=== PATIENT | male | born 1950 | race Two or more races ===

== ENCOUNTER 2025-01-10 15:49 | Outpatient (REF) | payer MEDICARE, MEDICAID, SELFPAY ==
--- OUTSIDE RECORDS SUMMARY | 2025-01-10 15:58 | XMS_ITS | Clinical Summary ---
Author Organization Social[employer] tem Address [id number] [address] 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 Name Role Phone No Pcp, No Pcp Primary Care Provider Unavailabl e Allergies Active AllergyReactionsCriticalityNoted PothMqppzzrnBeovqusvylw25/18/2018 Medications MedicationSigDispense QuantityRefillsLast FilledStart DateEnd DateStatus metFORMIN XR (GLUCOPHAGE-XR) 750 mg 24 hr tablet Take 1 tablet (750 mg total) by mouth daily with breakfast.Active lisinopriL (PRINIVIL,ZESTRIL) 30 mg tablet Take 40 mg by mouth in the morning.Active amLODIPine (NORVASC) 10 mg tablet Take 1 tablet (10 mg total) by mouth in the morning.Active busPIRone (BUSPAR) 15 mg tablet Take 1 tablet (15 mg total) by mouth in the morning and 1 tablet (15 mg total) before bedtime.Active diphenoxylate-atropine (LOMOTIL) 2.5-0.025 mg per tablet Take 1 tablet by mouth as needed in the morning and 1 tablet as needed at noon and 1 tablet as needed in the evening and 1 tablet as needed before bedtime for diarrhea.Active oxyCODONE-acetaminophen (PERCOCET) 5-325 mg per tablet Take 1 tablet by mouth every 8 (eight) hours as needed for pain.Active acamprosate (CAMPRAL) 333 mg EC tablet Take 2 tablets (666 mg total) by mouth in the morning and 2 tablets (666 mg total) at noon and 2 tablets (666 mg total) before bedtime.08/04/2020ctive acetaminophen (TYLENOL EXTRA STRENGTH) 500 mg tablet Take 1 tablet (500 mg total) by mouth in the morning and 1 tablet (500 mg total) at noon and 1 tablet (500 mg total) in the evening.Active aspirin 81 mg chewable tablet Chew 1 tablet (81 mg total) and swallow in the morning.08/05/2020ctive atorvastatin (LIPITOR) 80 mg tablet Take 1 tablet (80 mg total) by mouth daily.08/04/2020ctive meclizine (ANTIVERT) 25 mg tablet Take 1 tablet (25 mg total) by mouth 3 (three) times a day as needed.Active melatonin 10 mg tablet Take 10 mg by mouth nightly.Active polyethylene glycol (GLYCOLAX) 17 gram/dose powder Take 17 g by mouth in the morning.Active insulin glargine (LANTUS SOLOSTAR U-100 INSULIN) 100 unit/mL (3 mL) insulin pen Inject 50 Units under the skin nightly.Active NovoLOG Flexpen U-100 Insulin 100 unit/mL (3 mL) insulin pen Inject 4-14 Units under the skin in the morning and 4-14 Units at noon and 4-14 Units before bedtime.02/25/2021ctive escitalopram (LEXAPRO) 20 mg tablet Take 1 tablet (20 mg total) by mouth daily.Active glipiZIDE (GLUCOTROL XL) 10 mg 24 hr tablet Take 1 tablet (10 mg total) by mouth in the morning and 1 tablet (10 mg total) before bedtime.Active metoprolol tartrate (LOPRESSOR) 50 mg tablet Take 1 tablet (50 mg total) by mouth in the morning and 1 tablet (50 mg total) before bedtime.Active furosemide (LASIX) 20 mg tablet Take 1 tablet (20 mg total) by mouth daily.Active busPIRone (BUSPAR) 5 mg tablet Take 1 tablet (5 mg total) by mouth in the morning and 1 tablet (5 mg total) before bedtime.02/27/2021ctive miconazole (MICATIN) 2 % cream Apply 1 Application topically 2 (two) times a day as needed (fungal rash).Active ergocalciferol (DRISDOL) 1,250 mcg (50,000 unit) capsule Take 1 capsule (50,000 Units total) by mouth once a week.Active potassium chloride (K-TAB,KLOR-CON) 20 mEq CR tablet Take 1 tablet (20 mEq total) by mouth in the morning and 1 tablet (20 mEq total) before bedtime.Active TRULICITY 3 mg/0.5 mL pen injector Inject 0.5 mg under the skin once a week.3Active calcium carbonate-vitamin D3 (CALCIUM 500 + D) 500 mg(1,250mg) -200 units per tablet Take 1 tablet by mouth in the morning.Active gabapentin (NEURONTIN) 100 mg capsule Take 1 capsule (100 mg total) by mouth in the morning and 1 capsule (100 mg total) at noon and 1 capsule (100 mg total) before bedtime.Active rOPINIRole (REQUIP) 0.25 mg tablet Take 1 tablet (0.25 mg total) by mouth nightly.Active ammonium lactate (AMLACTIN) 12 % cream Indications:dry skinApply 1 Application topically nightly Indications: dry skin. Active lidocaine 3 % cream Apply topically as needed (to back and neck).Active ezetimibe (ZETIA) 10 mg tablet Take 1 tablet (10 mg total) by mouth in the morning.Active ketoconazole (NIZORAL) 2 % shampoo Apply 1 Application topically 2 (two) times a week. Apply to damp skin, lather, leave on 5 minutes,and rinseActive apixaban (ELIQUIS) 5 mg tablet Take 2 tablets (10 mg total) by mouth in the morning and 2 tablets (10 mg total) before bedtime. 14 tablet 5Active apixaban (ELIQUIS) 5 mg tablet Take 2 tablets (10 mg total) by mouth in the morning and 2 tablets (10 mg total) before bedtime. 10mg BID x7 days, then 5mg BID x7 days. 42 tablet 5Active spironolactone (ALDACTONE) 25 mg tablet Take 1 tablet (25 mg total) by mouth in the morning.Active docusate (COLACE) 50 mg/5 mL liquid Take 5 mL (50 mg total) by mouth in the morning.Active colchicine (COLCRYS) 0.6 mg tablet Take 1 tablet (0.6 mg total) by mouth in the morning.Active dapagliflozin-saxagliptin 5-5 mg tablet Take by mouth.Active semaglutide (OZEMPIC) 0.25 mg or 0.5 mg(2 mg/1.5 mL) pen injector Inject under the skin.Active albuterol (PROVENTIL HFA;VENTOLIN HFA) 90 mcg/actuation inhaler Inhale 2 puffs every 6 (six) hours as needed for wheezing.Active pantoprazole (PROTONIX) 40 mg EC tablet Take 1 tablet (40 mg total) by mouth in the morning and 1 tablet (40 mg total) in the evening. Takebefore meals.5Active Active Problems ProblemNoted DateDiagnosed DateCervical spondylosis without kzkfyyzqgt79/06/2023 Primary osteoarthritis of right eidwcwto19/06/7385Oxisuaytaq72/08/2022Restless legs08/16/2021iabetic veucysgrwg82/26/2021Heart dqxomxa7708/05/2020Hyperlipidemia 08/05/20203669Zfljguinhr54/20/2021ssential zdsshmqenubq99/20/2021Vascular dementia without behavioral gugbnjjiime62/20/2021lcohol withdrawal rmxmcgiq74/22/2020 Ntmbvmvfsfva47/11/2019 Encounters DateTypeDepartmentCare WomeChlltyhcwmv67/05/2025 3:40 PM EDT - 10/15/2024 6:45 PM EDTEmergency [facility] [address] [place] [address] Yogi Gu DO Hematoma (Primary Dx) Discharge Disposition: Home10/15/2024Travelfrom Last 3 Months Family History Medical HistoryRelationNameCommentsDiabetesBrotherHypertensionBrother HypertensionDaughterDiabetesFatherHypertensionFatherDiabetesMotherHeart disease MotherHypertensionMotherDiabetesSisterAnesthesia problemsNeg HxBleeding Disorder Neg HxRelationNameStatusCommentsBrotherDaughterFatherMotherSister Social History Tobacco UseTypesPacks/DayYears UsedDateSmoking Tobacco: Every DayCigarettes0.53 Smokeless Tobacco: Never Tobacco Cessation:Ready to Q uit: Not Asked; Counseling Given: Not Answered Alcohol UseStandard Drinks/WeekCommentsNot Currently0 (1 standard drink = 0.6 oz pure alcohol)says goes in binges. 1/5 of liquorAUDIT-CAnswerDate Recorded Frequency of Alcohol LtpkdeyxxdoQvnxr79/15/2018Average Number of DrinksNot on file10/25/2017Frequency of Binge DrinkingNot on file10/25/2017ChildcareAnswer Date DydcunzvXflcrpxvrGajtgru48/10/2019EmploymentAnswerDate RecordedEmployment Qvywkop6707/20/2018Hunger ScreeningAnswerDate RecordedWithin the past 12 months we worried whether our food would run out before we got money to buy more.Never True10/15/2024Within the past 12 months the food we bought just didn't last and we didn't have money to get more.Never True10/15/2024Purpose - LifeAnswerDate RecordedPurpose and direction in bvqtTdotcnw70/27/2021ex and Gender Information ValueDate RecordedSex Assigned at BirthNot on fileLegal WxlBqpq40/10/2015 10:22 AM ESTGender IdentityNot on fileSexual OrientationNot on file Last Filed Vital Signs Vital SignReadingTime TakenCommentsBlood Igpbkqvr020/8009 5:44 PM EDT Hekwb308310/15/2024 5:44 PM PTQAkpuosisepl44.7 ??C (98 ??F)10/15/2024 2:25 PM EDT Respiratory Jqbj318510/15/2024 5:44 PM EDTOxygen Dkdcbwrbav346%10/15/2024 5:44 PM EDTInhaled Oxygen Concentration--Gwuocz13.6 kg (171 lb)10/15/2024 2:25 PM EDT Rtdlio540.7 cm (5' 8 )10/15/2024 2:25 PM EDTBody Mass Ljshq6541/05/2025 2:25 PM EDT Plan of Treatment Health MaintenanceDue DateLast DoneCommentsTobacco Bytlxdmjye93/22/1953 Depression Nbefnarvv30/22/1965Adult BMI Follow Up Plan1970DTaP,Tdap and Td Vaccines (1 - Tdap)08/02/1971Zoster (Shingles) Vaccine (1 of 2)2002Fall Risk Qhrynzlgl52/22/2018Influenza Ogxjnti5310/11/2024Tobacco Jfqqjunwm64/29/2026 07/08/2024dult BMI Hgufldvgd47/06/2024RSV ( or age 60+ yrs) (1 - 1-dose 75+ series)08/02/2027bdominal Aortic Aneurysm (AAA) ScreenCompleted 06/24/2024 Goals GoalPatient Goal TypeAssociated ProblemsRecent ProgressPatient-Stated?Author Discharge home Swathi Hernandez RN Note: Evaluation of progress towards goal: Per discussion with , goal is to return home with home health care. Medical Devices ImplantedTypeAreaManufacturerDevice IdentifierShelf Expiration DateModel / Serial / LotLens Iol Ultrasert 21.5d - [id number] - [id number] Implanted:Qty: 1 on 02/22/2021 [facility] [id number] 21.5 / [id number] / NALens Iol Sy60wf.225 [place] Rpl 026375 - [id number] - [id number] Implanted:Qty: 1 on 07/08/2024 [facility] [id number] / [id number] / NAWr Fx Krsh 1.6mm 150mm Troc - [id number] Implanted:Qty: 2 on 06/30/2018 [facility]Right: BuhguCPJLL385.16 / / Plt Bn 73mm 2 Hl Va Lcp Olcrn - [id number] Implanted:Qty: 1 on 06/30/2018 by Espinoza [facility]ard [facility]: PwlyyVGOXD80.107.002 / / Scr Bn Cnn St 3.5mm 28mm - [id number] Implanted:Qty: 1 on 06/30/2018 [facility]: DvtebQFHTV676.828 / / Scr Bn Cnn St 3.5mm 24mm - [id number] Implanted:Qty: 1 on 06/30/2018 by [facility]: CdlbaOKZLJ912.824 / / Scr Bn 22mm 2.7mm St Strdr Lp - [id number] Implanted:Qty: 1 on 06/30/2018 by [facility]: NcykfOGXPP96.118.550 / / Scr Bn 22mm 2.7mm St Strdr Lp - [id number] Implanted:Qty: 1 on 06/30/2018 by [facility]: PmbycETZXC47.118.522 / / Scr Bn 18mm 2.7mm Va Lck St - [id number] Implanted:Qty: 1 on 06/30/2018 by Espinoza eGrard [facility]: SzsmpRBMKM75.211.018 / / Scr Bn 32mm 2.7mm [address] L[address] - [id number] Implanted:Qty: 1 on 06/30/2018 by [facility]: JckmuKMOZL12.211.032 / / Scr Bn 56mm 2.7mm [address] St - [id number] Implanted:Qty: 1 on 06/30/2018 by [facility]: IwvjfJCOUS94.211.056 / / Procedures Procedure NamePriorityDate/TimeAssociated DiagnosisCommentsCT KNEE RT WO CONT STAT10/15/2024 5:[address] BRAIN WO RSRXCEFJ65/05/2025 5:08 PM EDT EXTRA TUBES BLUE VEXFizzayz37/05/2025 4:42 PM EDT EXTRA XBJFZCktiydf78/05/2025 4:42 PM EDT C-REACTIVE PUDJEPZVVAI14/06/2024 4:39 PM EDT COMPREHENSIVE METABOLIC NMJELJBRH30/05/2025 4:39 PM EDT CBC WITH AUTO BZIDQERUFODYCIHR24/05/2025 4:39 PM EDT from Last 3 Months Results * CT knee right without contrast (10/15/2024 5:09 PM EDT)Anatomical Region LateralityModalityMSK, Lower Extremities, Knee, Patella, MSK CoveraRight Computed TomographySpecimen (Source)Anatomical Location / LateralityCollection Method / VolumeCollection TimeReceived Time10/15/2024 5:19 PM EDT Narrative 10/15/2024 5:22 PM EDT STUDY: CT KNEE RT WO CONT INDICATION: Fall. Pain TECHNIQUE: CT of the knee without contrast.. FINDINGS: Prepatellar, infrapatellar hematoma measures 7.1 x 1.9 x 7.0 cm. No obvious acute displaced fracture, malalignment. No significant suprapatellar effusion. No significant degenerative osteoarthritis for age. Vascular calcification/atherosclerosis. The quadriceps, patellar tendon appear intact. IMPRESSION: * ??Large prepatellar/infrapatellar soft tissue hematoma. * ??No obvious acute fracture, malalignment. Finalized by Rolan Brownlee on 10/15/2024 5:22 PM Procedure Note Rolan Brownlee MD - 10/15/2024 STUDY: CT KNEE RT WO CONT INDICATION: Fall. Pain TECHNIQUE: CT of the knee without contrast.. FINDINGS: Prepatellar, infrapatellar hematoma measures 7.1 x 1.9 x 7.0 cm. No obvious acute displaced fracture, malalignment. No significantsuprapatellar effusion. No significant degenerative osteoarthritis for age. Vascular calcification/atherosclerosis. The quadriceps, patellar tendonappear intact. IMPRESSION: * Large prepatellar/infrapatellar soft tissue hematoma. * No obvious acute fracture, malalignment. Finalized by Rolan Brownlee on 10/15/2024 5:22 PM Authorizing ProviderResult TypeResult StatusMicmukesh Gu [facility] CT ORDERABLESFinal Result * CT brain without contrast (10/15/2024 5:08 PM EDT)Anatomical RegionLaterality ModalityNeuro, Head, Head and Neck, Neuro CoveraN/AComputed TomographySpecimen (Source)Anatomical Location / LateralityCollection Method / VolumeCollection TimeReceived Time10/15/2024 5:14 PM EDT Narrative 10/15/2024 5:17 PM EDT STUDY: CT BRAIN WO CONT INDICATION: Fall. Possible loss of consciousness. TECHNIQUE: * ??CT head was performed without intravenous contrast using the standard protocol. Automated exposure control was utilized. * ??All CT scans at this facility use dose modulation, iterative reconstruction, and/or weight based dosing when appropriate to reduce radiation dose to as low as reasonably achievable. FINDINGS: No evidence of acute intracranial hemorrhage, mass effect, midline shift, or extra-axial fluid collection. Mild diffuse parenchymal atrophy. Ventricles, sulci and cisterns are otherwise unremarkable.Confluent periventricular and subcortical white matter hypodensities likely represent chronic microangiopathic changes. ??Davis-white matter differentiation is preserved. Bilateral pseudophakia. ??Soft tissues are unremarkable. Atherosclerotic plaque is noted in the carotid siphons and vertebral arteries bilaterally. No Paranasal sinuses are broadly clear. Mastoid air cells are broadly clear. No evidence of aggressive osseous lesion. IMPRESSION: * ??No acute intracranial abnormality, by CT. Finalized by Rolan Brownlee on 10/15/2024 5:17 PM Procedure Note Rolan Brownlee MD - 10/15/2024 STUDY: CT BRAIN WO CONT INDICATION: Fall. Possible loss of consciousness. TECHNIQUE: * CT head was performed without intravenous contrast using the standardprotocol. Automated exposure control was utilized. * All CT scans at this facility use dose modulation, iterativereconstruction, and/or weight based dosing when appropriate to reduceradiation dose to as low as reasonably achievable. FINDINGS: No evidence of acute intracranial hemorrhage, mass effect, midline shift,or extra-axial fluid collection. Mild diffuse parenchymal atrophy.Ventricles, sulci and cisterns are otherwise unremarkable. Confluentperiventricular and subcortical white matter hypodensities likelyrepresent chronic microangiopathic changes. Davis-white matter differentiation ispreserved. Bilateral pseudophakia. Soft tissues are unremarkable. Atherosclerotic plaque is noted in the carotid siphons and vertebralarteries bilaterally. No Paranasal sinuses are broadly clear. Mastoid aircells are broadly clear. No evidence of aggressive osseous lesion. IMPRESSION: * No acute intracranial abnormality, by CT. Finalized by Rolan Brownlee on 10/15/2024 5:17 PM Authorizing ProviderResult TypeResult StatusMichael P Neverauskas DOIMG CT ORDERABLESFinal Result * Light Blue Top (10/15/2024 4:42 PM EDT)ComponentValueRef RangeTest Method Analysis TimePerformed AtPathologist SignatureExtra TubeAuto Resulted 10/15/2024 6:01 PM EDPREMIER HEALTH MIAMI VAL[facility]PITAL NORTHpecimen (Source) Anatomical Location / LateralityCollection Method / VolumeCollection Time Received TimeBloodVenous blood / Kwmwsvy9310/15/2024 4:42 PM EDT10/15/2024 4:42 PM EDT Narrative Authorizing ProviderResult TypeResult StatusMichael P Neverauskas DOLAB BLOOD ORDERABLESFinal ResultPerforming OrganizationAddressCity/State/ZIP CodePhone Number [facility] [address] [place] [address], * (ABNORMAL) CBC auto differential (10/15/2024 4:39 PM EDT)ComponentValueRef RangeTest MethodAnalysis TimePerformed AtPathologist SignatureWBC6.04 - 11 x10E9/L10/15/2024 5:11 PM EDMAIN CAMPUS MEDICAL CENTERRBC Count4.04 (L)4.1 - 5.7 X10E12/L10/15/2024 5:11 PM [facility] Vkksnnqmvn61.4(L)13 - 17 g/dL10/15/2024 5:11 PM [facility]ITALHematocrit36.3(L)39 - 50 %10/15/2024 5:11 PM [facility]ITALMCV9080 - 100 fL10/15/2024 5:11 PM EDTPAVITA HEALTH SYSTEMMCH30.627 - 34 pg10/15/2024 5:11 PM EDTPAVITA HEALTH SYSTEMMCHC34.132 - 36 g/dL10/15/2024 5:11 PM EDTPAVITA HEALTH SYSTEMRDW14.211.5 - 15 %10/15/2024 5:11 PM EDTPAVITA HEALTH SYSTEMPlatelet Kctgw313699 - 450 X10E9/L10/15/2024 5:11 PM EDT [facility]ITALMPV8.57 - 12 fL10/15/2024 5:11 PM EDT [facility]ITALNeutrophils %63.4%10/15/2024 5:11 PM EDT [facility]ITALLymphocytes %24.3%10/15/2024 5:11 PM EDT [facility]ITALMonocytes %8.4%10/15/2024 5:11 PM EDT [facility]ITALEosinophils %3.1%10/15/2024 5:11 PM EDT [facility]ITALBasophils %0.8%10/15/2024 5:11 PM EDT [facility]ITALNeutrophils Absolute (A)3.81.5 - 6.6 10*3/uL10/15/2024 5:11 PM EDTPAVITA HEALTH SYSTEMLymphocytes Absolute1.51.0 - 3.5 10*3/uL10/15/2024 5:11 PM EDTPAVITA HEALTH SYSTEMMonocytes Absolute0.50.0 - 0.9 10*3/uL10/15/2024 5:11 PM EDTPAVITA HEALTH SYSTEMEosinophils Absolute0.20.0 - 0.4 10*3/uL10/15/2024 5:11 PM EDTPAVITA HEALTH SYSTEMBasophils Absolute0.00.0 - 0.2 10*3/uL10/15/2024 5:11 PM EDMAIN CAMPUS MEDICAL CENTERDifferential TypeAUTOMATED CTXXZIAPJWCU33/05/2025 5:11 PM [facility]ITALpecimen (Source)Anatomical Location / LateralityCollection Method / VolumeCollection TimeReceived TimeBloodVenous blood / UnknownVenipuncture / Eobitcp2010/15/2024 4:39 PM EDT10/15/2024 4:42 PM EDT Narrative Authorizing ProviderResult TypeResult StatusMichael P Neverauskas DOLAB BLOOD ORDERABLESFinal ResultPerforming OrganizationAddressty/State/ZIP CodePhone Number [address] [place] [address], [place] * (ABNORMAL) C-reactive protein (10/15/2024 4:39 PM EDT)ComponentValueRef Range Test MethodAnalysis TimePerformed AtPathologist SignatureC REACTIVE PROTEIN1.2 (H)<=0.7 mg/dL10/15/2024 5:15 PM [facility] Specimen (Source)Anatomical Location / LateralityCollection Method / Volume Collection TimeReceived TimeBloodVenous blood / UnknownVenipuncture / Unknown 10/15/2024 4:39 PM EDT10/15/2024 4:42 PM EDT Narrative Authorizing ProviderResult TypeResult StatusMichael P Neverauskas DOLAB BLOOD ORDERABLESFinal ResultPerforming OrganizationAddressty/State/ZIP CodePhone Number [address] [place] [address], [place] * (ABNORMAL) Comprehensive metabolic panel (10/15/2024 4:39 PM EDT)Component ValueRef RangeTest MethodAnalysis TimePerformed AtPathologist SignatureSODIUM 436642 - 146 mmol/L10/15/2024 5:15 PM [facility] POTASSIUM3.83.5 - 5.0 mmol/L10/15/2024 5:15 PM [facility]ITALCHLORIDE10098 - 109 mmol/L10/15/2024 5:15 PM EDMAIN CAMPUS MEDICAL CENTERCARBON ORTPTOD7830 - 32 mmol/L10/15/2024 5:15 PM [facility] HOSPITALANION GAP95 - 15 mmol/L10/15/2024 5:15 PM EDT [facility]ITALBLOOD UREA JBTEIURM160 - 27 mg/dL10/15/2024 5:15 PM [facility]ITALCREATININE0.63(L)0.70 - 1.20 mg/dL10/15/2024 5:15 PM [facility]ITALComment:METHOD TRACEABLE TO IDMS QEQRIYKKRITADXO446(H)65 - 99 mg/dL10/15/2024 5:15 PM EDT [facility]ITALCALCIUM8.58.5 - 10.5 mg/dL10/15/2024 5:15 PM [facility]OSPITALTOTAL PROTEIN6.86.0 - 8.0 g/dL 10/15/2024 5:15 PM [facility]PITALALBUMIN3.33.2 - 5.3 g/dL10/15/2024 5:15 PM [facility]OSPITALALKALINE XBQGECOQUFO266(H)39 - 130 U/L10/15/2024 5:15 PM [facility]ITALAST33<=41 U/L10/15/2024 5:15 PM [facility] ALT28<=40 U/L10/15/2024 5:15 PM [facility] BILIRUBIN,TOTAL1.5(H)0.3 - 1.2 mg/dL10/15/2024 5:15 PM [facility] HOSPITALEGFR Non-Race Dependent>90>=60 ml/min/1.73sq.m010/15/2024 5:15 PM [facility]ITALComment: eGFR not reported due to non-numeric value for Creatinine. Reported eGFR is based on the CKD-EPI 2020 equation that does not use a race coefficient. Specimen (Source)Anatomical Location / LateralityCollection Method / Volume Collection TimeReceived TimeBloodVenous blood / UnknownVenipuncture / Unknown 10/15/2024 4:39 PM EDT10/15/2024 4:42 PM EDT Narrative Authorizing ProviderResult TypeResult StatusMichael Pratik Gu DOLAB BLOOD ORDERABLESFinal ResultPerforming OrganizationAddressCity/State/ZIP CodePhone Number [facility] [address] [place] [address], [place] from Last 3 Months Insurance Advance Directives * Full Code (Latest Code Status on File) Date ActivatedDate BdunwwaiqosKhqyrsrk97/23/2020 7:24 AM02/03/2020 9:54 PM * Full Code Date ActivatedDate InactivatedComments06/21/2018 5:05 PM06/23/2018 6:11 PM Care Teams Team MemberRelationshipSpecialtyStart DateEnd Date No P[place], [place] [address] [facility]
--- OUTSIDE RECORDS SUMMARY | 2025-01-10 15:58 | XMS_ITS | Clinical Summary ---
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 Name Role Phone Jarret Robin MD Primary Care Provider + Allergies Active AllergyReactionsCriticalityNoted GxibVhimrdujGrklcdwrhflNmldgn56/18/2018 Medications MedicationSigDispense QuantityRefillsLast FilledStart DateEnd DateStatus furosemide (LASIX) 20 MG tablet Take 2 tablets by mouth dailyActive metFORMIN (GLUCOPHAGE-XR) 750 MG extended release tablet Take 1 tablet by mouth daily (with breakfast)Active aspirin 81 MG chewable tablet Take 1 tablet by mouth daily 30 tablet ctive acamprosate (CAMPRAL) 333 MG tablet Take 2 tablets by mouth 3 times daily 90 tablet ctive meclizine (ANTIVERT) 25 MG tablet Take 1 tablet by mouth 3 times daily as neededActive acetaminophen (TYLENOL) 500 MG tablet Take 1 tablet by mouth every 6 hours as needed for PainActive oxyCODONE-acetaminophen (PERCOCET) 5-325 MG per tablet Take 1 tablet by mouth every 4 hours as needed for Pain.Active polyethylene glycol (GLYCOLAX) 17 g packet Take 1 packet by mouth daily as needed for ConstipationActive escitalopram (LEXAPRO) 10 MG tablet Take 1 tablet by mouth tcaoxds65/21/2025Active folic acid (FOLVITE) 1 MG tablet Take 1 tablet by mouth daily5Active Multiple Vitamin (MULTIVITAMIN) TABS tablet Take 1 tablet by mouth daily5Active pantoprazole (PROTONIX) 40 MG tablet Take 1 tablet by mouth 2 times daily (before meals)06/30/2024tive thiamine 100 MG tablet Take 1 tablet by mouth daily5Active phosphorus (K PHOS NEUTRAL) 155-852-130 MG tablet Take 1 tablet by mouth 2 times kcvjn596tive spironolactone (ALDACTONE) 25 MG tablet Take 1 tablet by mouth dailyActive metoprolol tartrate (LOPRESSOR) 50 MG tablet Take 1 tablet by mouth 2 times dailyActive miconazole (MICOTIN) 2 % cream Apply 1 g topically 2 times daily as neededActive colchicine (COLCRYS) 0.6 MG tablet Take 1 tablet by mouth dailyActive ezetimibe (ZETIA) 10 MG tablet Take 1 tablet by mouth dailyActive Active Problems ProblemNoted DateDiagnosed DateAbdominal pain10/05/2024Gastric ulcer with oezmwclwci20/20/1212Flspzlkeug69/20/5689Vcplyrsuimymzp35/18/2025Thrombocytopenia 06/27/20243578Ykfdlz16/18/2025Encounter for palliative care06/25/2024Goals of care, counseling/ahflnyobpt49/16/2025Elevated opmlvo1606/24/2024Hypovolemic shock 06/24/2024Septic shock06/24/20242086Mtpulhwksfygd15/15/2025KI (acute kidney injury) 06/23/20243383Tajyuqczfwswvc81/14/9751Zqozgvygiwyw34/14/2025Hepatitis C antibody /14/7174Fapqmrfob88/14/2025bnormal LFTs06/23/2024lcohol abuse 07/30/2020Type 2 diabetes mellitus, with long-term current use of insulin 07/30/2020ssential tegrvgfrvurc00/20/2021Vascular dementia without behavioral aygiwksmdgk89/20/5561Lkvcsxfiwv02/20/2021 Resolved Problems ProblemNoted DateDiagnosed DateResolved DateUTI (urinary tract infection) /ute CVA (cerebrovascular accident)KI (acute kidney injury)Vertigoilutional zwugfymqgojd87/20/314213/ Encounters DateTypeDepartmentCare UvhoNbnnpskmtxq95/03/2025Telephone [facility] [address] [place] [id number] Franky Maloney MD Resultsfrom Last 3 Months Family History Medical HistoryRelationNameCommentsHypertensionFatherDiabetesMotherHeart Disease MotherHypertensionMotherRelationNameStatusCommentsFatherMother Social History Tobacco UseTypesPacks/DayYears UsedDateSmoking Tobacco: Every DayCigarettes0.552 Smokeless Tobacco: Never Comments:States one pack las ting him a week Alcohol UseStandard Drinks/WeekCommentsNot Currently0 (1 standard drink = 0.6 oz pure alcohol)state last use 4 months ago -written 10/05/24[facility] UtilitiesAnswerDate RecordedIn the past 12 months has the [employer], gas, oil, or water Change Lane threatened to shut off services in your home?No06/26/2024Hunger Vital SignAnswer Date RecordedWithin the past 12 months, you worried that your food would run out before you got the money to buymore.Never true06/26/2024Within the past 12 months, the food you bought just didn't last and you didn't have money to get more.Never true06/26/2024PRAPARE - TransportationAnswerDate RecordedIn the past 12 months, has lack of transportation kept you from medical appointments or from getting medications?No06/26/2024In the past 12 months, has lack of transportation kept you from meetings, work, or from getting things needed for daily living?No06/26/2024Housing Stability Vital SignAnswerDate RecordedIn the last 12 months, was there a time when you were not able to pay the mortgage or rent on time?No06/26/2024In the past 12 months, how many times have you moved where you were living?t any time in the past 12 months, were you homeless or living in a senior care (including now)?No06/26/2024Food Insecurity AnswerDate RecordedWithin the past 12 months, you worried that your food would run out before you got the money to buymore.105/17/2025Within the past 12 months, the food you bought just didn't last and you didn't have money to get more.Interpersonal Safety Domain Source: IP Abuse ScreeningAnswerDate RecordedPhysical tkxvsVpziyv81/25/2025Verbal tokknQcxoul34/25/2025Emotional brbrsFdachm34/25/2025Financial zdvabGvmrgl99/25/2025Sexual aejssWiafef85/25/2025 Sex and Gender InformationValueDate RecordedSex Assigned at BirthNot on file Legal UjlCajy8207/30/2020 3:36 AM EDTGender IdentityNot on fileSexual Orientation Not on file Last Filed Vital Signs Vital SignReadingTime TakenCommentsBlood Ceebytfh241/6018610/05/2024 1:00 PM EDT Isapg8697/26/2025 1:00 PM VEWRpgkcpozvcj52.3 ??C (97.3 ??F)10/05/2024 1:00 PM EDTRespiratory Tssd160610/05/2024 1:00 PM EDTOxygen Yrpiuzmhcd939%10/05/2024 1:00 PM EDTInhaled Oxygen Concentration--Vuudtt95.6 kg (182 lb)10/04/2024 12:24 PM EYULbjpid731.3 cm (5' 9 )10/04/2024 12:24 PM EDTBody Mass Index26.8810/04/2024 12:24 PM EDT Plan of Treatment Health MaintenanceDue DateLast DoneCommentsDiabetic foot exam1962 Depression Llqtytkjur28/22/1965Diabetic Alb to Cr ratio (uACR) test1970 Diabetic retinal exam1970DTaP/Tdap/Td vaccine (1 - Tdap)08/02/1971 Hepatitis A vaccine (1 of 2 - Risk 2-dose series)08/02/1971Pneumococcal 50+ years Vaccine (1 of 2 - PCV)08/02/19714884Pggtmjrslsp38/22/1998Colorectal Cancer Swlcgs0408/01/1997FIT/FOBT: Average risk1997Fecal-DNA (Cologuard): Average risk1997Sigmoidoscopy/CT icdtjchdtttq36/22/1998Lung Cancer Screening &/or Jgoodwaajn84/22/2003Shingles vaccine (1 of 2)2002Hepatitis B vaccine (1 of 3 - Risk 3-dose series)2012Respiratory Syncytial Virus (RSV) or age 60 yrs+ (1 - Risk 60-74 years 1-dose series)2012nnual Wellness Visit (Medicare)06/23/2024Flu vaccine (#1)09/10/2024OVID-19 Vaccine ( - 2024- season)/, 1A1C test (Diabetic or Prediabetic) /, 4445Kpjzad23/18/202605/, 08/02/2020GFR test (Diabetes, CKD 3-4, OR last GFR 15-59)/, 06/30/2024, 06/29/2024, Additional history existsAAA nalavjSnlovazcb76/14/2025Hepatitis C grfckoOhfvwzoxe92/15/2025, 06/24/2024, 06/23/2024Hib vaccineAged OutNo longer eligible based on patient's age to complete this topicMeningococcal (ACWY) vaccineAged OutNo longer eligible based on patient's age to complete this topic Meningococcal B vaccineAged OutNo longer eligible based on patient's age to complete this topicPolio vaccineAged OutNo longer eligible based on patient's age to complete this topic Procedures Procedure NamePriorityDate/TimeAssociated DiagnosisCommentsCOMPREHENSIVE METABOLIC PANEL W/ REFLEX TO MG FOR LOW KSTAT07/01/2024 6:15 AM EDT LIPID AGPYCVuntcku18/18/2025 6:55 PM EDT HEMOGLOBIN I1BPdcfkov99/17/2025 8:39 PM EDT HEPATITIS PANEL, UJQXJJdkglss81/15/2025 10:24 AM EDT from Last 3 Months or Most Recently Relevant to Health Maintenance Results * (ABNORMAL) Comprehensive Metabolic Panel w/ Reflex to MG (07/01/2024 6:15 AM EDT)ComponentValueRef RangeTest MethodAnalysis TimePerformed AtPathologist ZvlajehnqLjkjnl432489 - 145 mmol/L07/01/2024 6:15 [facility] Potassium3.4(L)3.7 - 5.3 mmol/L07/01/2024 6:15 AM [facility] Mwxeauta61203 - 107 mmol/L07/01/2024 6:15 AM EDTMERCY BPJZDNHTDZOLBL93385 - 31 mmol/L07/01/2024 6:15 AM EDTMERCY LABORATORIESAnion Pmz384 - 16 mmol/L 07/01/2024 6:15 AM EDTMERCY TZBCQXFJEFYVZynnbdx502(H)74 - 99 mg/dL07/01/2024 6:15 AM EDTMERCY CUEMILQCZDVPQFI93 - 23 mg/dL07/01/2024 6:15 AM EDTM[facility] LABORATORIESCreatinine0.70.7 - 1.2 mg/dL07/01/2024 6:15 AM EDTMERCY LABORATORIESEst, Glom Filt Rate>90>60 mL/min/1.80x88107/01/2024 6:15 AM EDTMERCY LABORATORIESComment: ? These results are not intended for use in patients <18 years of age. ? eGFR results are calculated without a race factor using the 2020 CKD-EPI equation. Careful clinical correlation is recommended, particularly when comparing to results calculated using previous equations. The CKD-EPI equation is less accurate in patients with extremes of muscle mass, extra-renal metabolism of creatine, excessive creatine ingestion, or following therapy that affects renal tubular secretion. Calcium8.1(L)8.6 - 10.4 mg/dL07/01/2024 6:15 AM EDTMERCY LABORATORIESTotal Protein5.8(L)6.6 - 8.7 g/dL07/01/2024 6:15 AM EDTMERCY LABORATORIESAlbumin2.6(L) 3.5 - 5.2 g/dL07/01/2024 6:15 AM EDTMERCY LABORATORIESAlbumin/Globulin Ratio0.8 (L)1.0 - 2.505 6:15 AM EDTMERCY LABORATORIESTotal Bilirubin1.9(H)0.0 - 1.2 mg/dL07/01/2024 6:15 AM EDTMERCY LABORATORIESAlkaline Kkvqfshmbfl720(H)40 - 129 U/L07/01/2024 6:15 AM EDTMERCY GBCSWKTYPEDECLM98(H)10 - 50 U/L07/01/2024 6:15 AM EDTMERCY DADLHUWWMCPIQTX83(H)10 - 50 U/L07/01/2024 6:15 AM EDTMERCY LABORATORIESSpecimen (Source)Anatomical Location / LateralityCollection Method / VolumeCollection TimeReceived TimeBloodBLOOD SPECIMEN / Vbcoolz5007/01/2024 6:15 AM EDT07/01/2024 6:31 AM EDT Narrative Authorizing ProviderResult TypeResult StatusJewechristopher Barrientos MEDICAL RECORDS TECHNICIAN - CNPCHEMISTRY ORDERABLESFinal ResultPerforming OrganizationAddressCity/State/[facility] CodePhone Number [facility]ITALThrill On [place] [id number] [address] [phone] * (ABNORMAL) Lipid Panel (06/27/2024 6:55 PM EDT)ComponentValueRef RangeTest MethodAnalysis TimePerformed AtPathologist SignatureCholesterol, Yublk426 - 199 mg/dL06/27/2024 6:55 PM EDTMERCY LABORATORIESComment: Cholesterol Guidelines: <200 Desirable 200-240 ??Borderline >240 Undesirable HDL24(L)>40 mg/dL06/27/2024 6:55 PM EDTMERCY LABORATORIESComment: HDL Guidelines: <40 Undesirable 40-59 ?Borderline >59 Desirable LDL Dqjylcpaopt088 - 100 mg/dL06/27/2024 6:55 PM EDTMERCY LABORATORIESComment: LDL Guidelines: <100 Desirable 100-129 ?? Near to/above Desirable 130-159 ?? Borderline >159 Undesirable Direct (measured) LDL and calculated LDL are not interchangeable tests. Chol/HDL Ratio2.6<5.005 6:55 PM EDTMERCY BAMAHIXYOQQRRobyiauageela167 <150 mg/dL06/27/2024 6:55 PM EDTMERCY LABORATORIESComment: Triglyceride Guidelines: <150 Desirable 150-199 ??Borderline 200-499 ??High >499 Very high Based on AHA Guidelines for fasting triglyceride, November 2011. FRTR331 - 30 mg/dL06/27/2024 6:55 PM EDTMERCY LABORATORIESSpecimen (Source) Anatomical Location / LateralityCollection Method / VolumeCollection Time Received Time06/27/2024 6:55 PM EDT06/27/2024 7:04 PM EDT Narrative Authorizing ProviderResult TypeResult StatusJewel Chloe Iliana MEDICAL RECORDS TECHNICIAN - CNPCHEMISTRY ORDERABLESFinal ResultPerforming OrganizationAddressty/State/ZIP CodePhone Number [employer] ([place] [address], [facility] [phone] * (ABNORMAL) Hemoglobin A1C (06/26/2024 8:39 PM EDT)ComponentValueRef RangeTest MethodAnalysis TimePerformed AtPathologist SignatureHemoglobin A1C6.7(H)4.0 - 6.0 %06/26/2024 8:39 PM EDTMERCY LABORATORIESEstimated Avg Bogedro185ib/dL 06/26/2024 8:39 PM EDTMERCY LABORATORIESComment: The ADA and AACC recommend providing the estimated average glucose result to permit better patient understanding of their HBA1c result. Specimen (Source)Anatomical Location / LateralityCollection Method / Volume Collection TimeReceived Time06/26/2024 8:39 PM EDT06/26/2024 8:48 PM EDT Narrative Authorizing ProviderResult TypeResult StatusSalil Avasthi MDCHEMISTRY ORDERABLES Final ResultPerforming OrganizationAddFulton [facility]/ZIP CodePhone Number [employer])[address] [phone] * (ABNORMAL) Hepatitis Panel, Acute (06/24/2024 10:24 AM EDT)ComponentValueRef RangeTest MethodAnalysis TimePerformed AtPathologist SignatureHepatitis B Surface LoFIUEAOPPFNXPHJLTRGOXOB49/15/2025 10:24 AM EDTMERCY LAB[facility]ATORIES Hepatitis C AbREACTIVE(A)FBBTHEGVZHM62/15/2025 10:24 AM EDTMERCY LABORATORIES Comment: ? The hepatitis C procedure used in our laboratory is a Chemiluminescent test specific for three recombinant HCV antigens. ??A negative anti-HCV result indicates that the antibodies to hepatitis C virus are not present at this time. Individuals with reactive anti-HCV should be considered infected and infectious until proven otherwise. ??Confirmation of all equivocal or reactive results is recommended by ordering HCV RNA by PCR. ? Results reported to the appropriate Health Department Hep B Core Ab, TlCGEWHESEWLLZZBQVVUCQDCH13/15/2025 10:24 AM EDTMERCY LABORATORIESHep A JwGWAJEXXJEGTHPUOXXMGBHQD04/15/2025 10:24 AM EDTMERCY LABORATORIESSpecimen (Source)Anatomical Location / LateralityCollection Method / VolumeCollection TimeReceived TimeBLOOD SPECIMEN / Voohtdb2006/24/2024 10:24 AM EDT06/24/2024 10:27 AM EDT Narrative Authorizing ProviderResult TypeResult StatusRahichristopher Victor MDIMMUNOLOGY ORDERABLESFinal ResultPerforming OrganizationAddressCity/State/ZIP CodePhone Number [employer] [place] [phone] [place] [id number], [facility] [phone] from Last 3 Months or Most Recently Relevant to Health Maintenance Insurance * Guarantor: Guadalupe Neff TypeRelation to PatientDate of BirthPhone Billing AddressPersonal/YgifuqSimn39/22/1951 [facility] [place] [address] Advance Directives * Full Code (Latest Code Status on File) Date ActivatedDate InactivatedComments06/23/2024 8:23 PM07/01/2024 3:14 PM * Full Code Date ActivatedDate InactivatedComments07/30/2020 12:57 PM08/05/2020 6:41 PM Care Teams Team MemberRelationshipSpecialtyStart DateEnd Date Jarret Robin MD [address] [place] [id number] [facility] - [facility]07/30/20
--- OUTSIDE RECORDS SUMMARY | 2025-01-10 15:58 | XMS_ITS | Clinical Summary ---
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 Name Role Phone Unavailable Primary Care Provider Unavailabl e Social History Tobacco UseTypesPacks/DayYears UsedDateSmoking Tobacco: Never AssessedSex and Gender InformationValueDate RecordedSex Assigned at BirthNot on fileLegal Sex Male04/24/2022 8:26 PM EDTGender IdentityNot on fileSexual OrientationNot on file Last Filed Vital Signs Vital SignReadingTime TakenCommentsBlood Ouwysase916/5809/ 12:00 PM EDT Pulse--Temperature--Respiratory Rate--Oxygen Saturation--Inhaled Oxygen Concentration--Xghzjf03.5 kg (215 lb)12/19/2020 12:00 PM TJURdhglv276.7 cm (5' 8 )12/19/2020 12:00 PM ESTBody Mass Index32.6912/19/2020 12:00 PM EST Plan of Treatment Not on file Insurance
--- OUTSIDE RECORDS SUMMARY | 2025-01-10 15:58 | XMS_ITS | Clinical Summary ---
Author Organization [facility] Address [address] [place] [address] Care Team Providers Care Coloring Checker Name Role Phone Unavailable Primary Care Provider Unavailabl e Social History Tobacco UseTypesPacks/DayYears UsedDateSmoking Tobacco: Never AssessedUT Safety & EnvironmentAnswerDate RecordedFear of Current or Ex-PartnerNot on file 04/03/2023Emotionally AbusedNot on file04/03/2023hysically AbusedNot on file 04/03/2023Sexually AbusedNot on file04/03/2023hysically or Sexually AbusedNot on file04/03/2023Sex and Gender InformationValueDate RecordedSex Assigned at BirthNot on fileLegal NhiQuzk5408/08/2021 9:43 PM EDTGender IdentityNot on file Sexual OrientationNot on file Plan of Treatment Not on file
--- OUTSIDE RECORDS SUMMARY | 2025-01-10 15:58 | XMS_ITS ---
Author Organization [facility] Care Team Providers Care Window Framer Name Role Phone Steve Abdullahi Unavailable Unavailable Sarah Reno Unavailable Unavailable Olga Terrell Unavailable Unavailable Allergies and adverse reactions No Known Allergies Care Team Name Role Address Phone Organization Dates Steve Abdullahi [facility] [address] [address], [place], [address], [facility] (Office): : [facility] 08/05/2020 - 07/11/2022 Sarah Reno [address], [place], [address], [place] (Office): : [facility] 08/05/2020 - 07/11/2022 Olga Terrell [address] [address], [place], [address], [facility] (Office): : : [facility] 08/05/2020 - 07/11/2022 Immunizations Immunization Status Vaccine Details Vaccine Code CodeSystem Ok e Notes TB 2 Step Mantoux Skin Test completed tuberculin skin test; unspecified formulation Step 2 of Multi-step with next step required 98 CVX created date: 08/18/2020 consent date: 08/18/2020 administered date: 08/12/2020 TB 2 Step Mantoux Skin Testcompletedtuberculin skin test; unspecified formulation Step 1 of Multi-step with next step dgpetnrp41HTSelkzwxd date: 08/18/2020 consent date: 08/18/2020 administered date: 08/05/2020neumovaxcancelledpneumococcal polysaccharide vaccine, 23 hfrdfk02YIXovelejn date: 08/08/2020 consent date: 08/08/2020Influenza-Flucelvax Qaudrivalant 0.5 PFS 10/bxcancelled Influenza, high-dose, split virus, quadrivalent, injectable, preservative free 197CVXcreated date: 08/08/2020 consent date: 01/11/20224016EPUL-YUU-4 (COVID-19)spxqfmczzVMCJ-SJS-7 (COVID-19) vaccine, mRNA, spike protein, LNP, preservative free, 100 mcg/0.5mL dose or 50 mcg/0.25mL dose Step 2 of Multi-step with next step belhbsrr118MRRqoenewd date: 06/01/2021 administered date: 11/02/20207875EXDG-HLM-5 (COVID-19)svluwobuyUVSG-QTT-2 (COVID-19) vaccine, mRNA, spike protein, LNP, preservative free, 100 mcg/0.5mL dose or 50 mcg/0.25mL dose Step 1 of Multi-step with next step lfffopum555OENghngjrg date: 06/01/2021 administered date: 10/04/2020 Mental Status Section Date Assessment Total Score Description 07/10/2022 BIMS 14 cognitively int act CAM 0 No delirium ind icated PHQ-9 00 05/18/20229352AIIG08haspflbippk wonswyVBG5Sd delirium indicatedPHQ-905mild depression Insurance Providers Coverage Status Coverage Type Relationship to Subscriber Member Identifier Subscriber Identifier Group Identifier Payer Identifier and Other information Code: 2 Code System OID:2..84 [id number]. 3.221.5 Code System Name: Source of Payment Typology ([facility]) Display: Medicaid Translation : Code: 48 Code System: OID:2..84 [id number]. [phone] Code System Name: Insurance Type Code ([id number]) Display Name: Medicaid Problems Problem # Description Date of onset Resolved Date Code CodeSystem Concern Status 1 OTHER SECONDARY CATARACT, RIGHT EYE 05/04/[address] active 2 ENCOUNTER FOR OTHER SPECIFIED AFTERCARE 02/26/[address] active 3 PAIN IN LEFT KNEE 02/20/[address] active 4 ACUTE COUGH 01/18/[address] active 5 HEREDITARY AND IDIOPATHIC NEUROPATHY, UNSPECIFIED 01/18/[address] active 6 HYPOKALEMIA 01/18/[address] active 7 OTHER CHRONIC PAIN 11/30/[address] active 8 RESTLESS LEGS SYNDROME 08/17/[address] active 9 COVID-19 03/08/19 22 05/11/[address] completed 10 HYPERKALEMIA 09/11/[address] active 11 CONSTIPATION, UNSPECIFIED 08/28/[address] active 12 INSOMNIA, UNSPECIFIED 08/18/[address] active 13 ABNORMAL POSTURE 08/06/[address] active 14 ACUTE KIDNEY FAILURE, UNSPECIFIED 08/06/[address] active 15 ALCOHOL ABUSE, UNCOMPLICATED 08/06/[address] active 16 ANEMIA, UNSPECIFIED 08/06/[address] active 17 ANXIETY DISORDER, UNSPECIFIED 08/06/[address] active 18 CEREBRAL INFARCTION, UNSPECIFIED 08/06/[address] active 19 DIARRHEA, UNSPECIFIED 08/06/[address] active 20 DIZZINESS AND GIDDINESS 08/06/[address] active 21 ESSENTIAL (PRIMARY) HYPERTENSION 08/06/[address] active 22 HEART FAILURE, UNSPECIFIED 08/06/[address] active 23 HYPERLIPIDEMIA, UNSPECIFIED 08/06/[address] active 24 HYPO-OSMOLALITY AND HYPONATREMIA 08/06/[address] active 25 HYPOMAGNESEMIA 08/06/[address] active 26 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 08/06/[address] active 27 MAJOR DEPRESSIVE DISORDER, SINGLE EPISODE, UNSPECIFIED 08/06/[address] active 28 MUSCLE WEAKNESS (GENERALIZED) 08/06/[address] active 29 OTHER ABNORMALITIES OF GAIT AND MOBILITY 08/06/[address] active 30 OTHER SPECIFIED DIABETES MELLITUS WITH DIABETIC NEUROPATHY, UNSPECIFIED 08/06/[address] active 31 PAIN, UNSPECIFIED 08/06/[address] active 32 TYPE 2 DIABETES MELLITUS WITHOUT COMPLICATIONS 08/06/[address] active 33 UNSPECIFIED HEARING LOSS, BILATERAL 08/06/[address] active 34 UNSPECIFIED VISUAL LOSS 08/06/[address] active 35 VASCULAR DEMENTIA, UNSPECIFIED SEVERITY, WITHOUT BEHAVIORAL DISTURBANCE, PSYCHOTIC DISTURBANCE, MOOD DISTURBANCE, AND ANXIETY 08/06/[address] active Reason for Referral No Reasons for Referral Entered Social History Social History Observation Description Start Date End Date Code Code System Current Smoking Status Tobacco smoking consumption unknown 369190997 SNOMED CT Sex Assigned At Male 1950 41948-4 [facility] Gender Identity Sexual Orientation Vital Signs Code Code System Vitals Name Values and Units Timing Information 2339-0 [facility] Blood Sugar Anpet=442.0 Units=mg/dL 07/10/2022 47849-4 [facility] Pain Level Value=8.0 07/10/2022 8462-4 [facility] Blood Pressure-Diastolic Value=75 Un its=mmHg 07/08/2022 8480-6 [facility] Blood Pressure-Systolic Dipgg=524 Un its=mmHg 07/08/2022 8867-4 [facility] Heart rate Value=69.0 Units=/min 63519-0 [facility] Weight Ucdlb=527.0 Units=Lbs 02/2022 9279-1 INC Respiratory Rate Value=18.0 Units=/m in 05/17/2022 8310-5 [facility] Body Temperature Value=97.7 Units= F 05/17/2022 41167-6 [facility] O2 % BldC Oximetry Value=99.0 Units= % 05/17/2022 8302-2 [facility] Height Value=67.0 Units=Inches 2020
[2025-01-10 16:01] LABS: Hematocrit 39.7 % (42.0-54.0); Hemoglobin 12.9 g/dL (14.0-18.0); Immature Granulocytes Abs Auto 0.02 10^3/uL (0.00-0.03); Immature Granulocytes Pct Auto 0.4 % (0.0-0.5); Lymphocytes Absolute Auto 1.3 10^3/uL (1.2-3.8); Mean Corpuscular HGB Conc 32.5 g/dL (29.9-35.2); Mean Corpuscular Hemoglobin 29.8 pg (25.9-34.0); Mean Corpuscular Volume 91.7 fL (80.0-94.0); Platelet Count 154 10^3/uL (150-450); Red Blood Count 4.33 10^6/uL (4.70-6.10); White Blood Count 5.6 10^3/uL (4.0-11.0)
[2025-01-10 16:07] LABS: INR 1.06; Prothrombin Time 11.1 sec (9.0-11.6)
[2025-01-10 16:21] LABS: Alanine Aminotransferase 32 U/L (16-63); Albumin Globulin Ratio 0.8; Albumin Level 3.1 g/dL (3.4-5.0); Alkaline Phosphatase 336 U/L (46-116); Anion Gap 9.8; Aspartate Amino Transferase 22 U/L (15-37); Blood Urea Nitrogen 18.0 mg/dL (7.0-18.0); Calcium 9.1 mg/dL (8.5-10.1); Carbon Dioxide 32.0 mmol/L (21.0-32.0); Chloride 98 mmol/L (98-107); Estimated GFR (African America >60 (>=60 mL/min/1.73m^2); Estimated GFR (Non-African Ame >60 (>=60 mL/min/1.73m^2); Globulin 4.1 g/dL; Glucose 207 mg/dL (74-106); NT Pro B Type Natriuretic Pept 271.0 pg/mL (<=900.0); Potassium 3.8 mmol/L (3.5-5.1); Sodium 136 mmol/L (136-145); Total Protein 7.2 g/dL (6.4-8.2)
== END 2025-01-10 15:50 | disposition home or self-care (01) ==
LOC: LAB 15:49
PROVIDERS: PCP Student in an Organized Health Care Education/Training Program; Visit Provider Student in an Organized Health Care Education/Training Program
DX: I50.9 Heart failure, unspecified (principal)
CPT/HCPCS: 36415; 80053; 83880; 84484; 85025; 85610